=== PATIENT | female | born 1960 | race Two or more races ===

== ENCOUNTER 2021-08-07 22:12 | Emergency (ER) | payer OTHER ==
[2021-08-07] MEDS ORDERED: ACETAMINOPHEN 500 MG TABLET (FP) PO ONE (22:35)
[2021-08-07 22:39] VITALS: BP 147/78; PULSE 84; TEMP 98.2; BMI 30.2
[2021-08-07] MEDS ORDERED: ACETAMINOPHEN 500 MG TABLET (FP) ONE (22:42)
== END 2021-08-07 22:44 | disposition home or self-care (01) ==
LOC: FER 22:12
DX: R51.9 Headache, unspecified (principal)
CPT/HCPCS: 99283-25